=== PATIENT | female | born 1945 | race Caucasian/White ===

== ENCOUNTER 2024-05-06 14:19 | Observation (INO) | payer OTHER ==
[2024-05-06 15:04] VITALS: BMI 27.6
[2024-05-06 16:05] LABS: BASO % 0.8 % (0-2.0); HEMATOCRIT 33.5 % (32.4-45.2); HEMOGLOBIN 11.1 GM/dL (10.7-15.3); LYMPH % 14.3 % (8-40); MCH 30.6 pg (25.7-33.7); MCHC 33.1 g/dl (32.0-36.0); MEAN CELL VOLUME 92.5 fl (80-96); NEUT % 74.9 % (42.8-82.8); PLATELET COUNT 168 10^3/uL (134-434); RBC 3.62 M/mm3 (3.60-5.2); RDW 13.9 % (11.6-15.6); WHITE BLOOD COUNT 7.6 K/mm3 (4.0-10.0)
[2024-05-06 16:08] LABS: VENOUS BASE EXCESS -4.9 mmol/L (-2-2); VENOUS O2 SATURATION 65.7 % (70-80); VENOUS PCO2 39.2 mmHg (38-52); VENOUS PH 7.335 (7.310-7.410)
[2024-05-06 16:27] LABS: POTASSIUM 3.3 mmol/L (3.5-5.1)
[2024-05-06 16:29] LABS: ALBUMIN 3.3 g/dl (3.4-5.0); BLOOD UREA NITROGEN 30.6 mg/dL (7-18); CALCIUM 9.3 mg/dL (8.5-10.1)
[2024-05-06 16:33] LABS: CREATININE 1.9 mg/dL (0.55-1.3)
[2024-05-06 16:34] LABS: BILIRUBIN,TOTAL 0.8 mg/dL (0.2-1); TOT PROT 6.5 g/dl (6.4-8.2)
[2024-05-06] MEDS: LACTATED RINGERS SOLUTION 1000 ML INFUS.BAG IV ONE (16:55)
[2024-05-06] MEDS ORDERED: POTASSIUM CHLORIDE TABS 20 MEQ TABLET.ER (FP) PO ONE (16:56)
[2024-05-06] MEDS: POTASSIUM CHLORIDE TABS 20 MEQ TABLET.ER (FP) PO ONE (17:03)
[2024-05-06] MEDS: POTASSIUM CHLORIDE ORAL LIQUID 20 MEQ/15 ML PO ONE (17:05)
[2024-05-06 23:05] LABS: EPI CELLS 8 /uL (0-25.1); HYALINE CASTS 0 /uL (0-3.1); PH,URINE 6.5 (5.0-8.0); URINE APPEARANCE CLEAR; URINE BACTERIA 224 /uL (0-1359); URINE BILIRUBIN NEGATIVE (NEGATIVE); URINE COLOR YELLOW; URINE GLUCOSE (UA) NEGATIVE (NEGATIVE); URINE KETONE NEGATIVE (NEGATIVE); URINE LEUK ESTERASE 3+ (NEGATIVE); URINE NITRITE NEGATIVE (NEGATIVE); URINE PROTEIN TRACE (NEGATIVE); URINE RBC 36 /uL (0-23.9); URINE UROBILINOGEN 0.2 mg/dL (0.2-1.0); URINE WBC 153 /uL (0-25.8)
[2024-05-07 02:48] VITALS: RESP 18
[2024-05-07] MEDS: LEVOTHYROXINE NA 50 MCG TABLET (FP) PO SCH (06:06)
[2024-05-07 08:24] LABS: POTASSIUM 3.5 mmol/L (3.5-5.1)
[2024-05-07 08:38] LABS: BLOOD UREA NITROGEN 23.2 mg/dL (7-18)
[2024-05-07 08:42] LABS: CREATININE 1.3 mg/dL (0.55-1.3)
[2024-05-07 13:05] VITALS: BP 123/68; PULSE 73; TEMP 96.8
== END 2024-05-07 14:49 | disposition home or self-care (01) ==
LOC: JER 14:19 → JERBED 17:10 → J4S 23:17
PROVIDERS: ADMIT Internal Medicine; ATTEND Internal Medicine
PROC: 3E0337Z Introduction of Electrolytic and Water Balance Substance into Peripheral Vein, Percutaneous Approach (ICD-10-PCS; principal; 2024-05-06)
DX: R11.2 Nausea with vomiting, unspecified (principal); R19.7 Diarrhea, unspecified; R42 Dizziness and giddiness; E03.9 Hypothyroidism, unspecified; E78.5 Hyperlipidemia, unspecified; E87.6 Hypokalemia; I51.9 Heart disease, unspecified; K58.9 Irritable bowel syndrome, unspecified; Z96.653 Presence of artificial knee joint, bilateral; N17.9 Acute kidney failure, unspecified
CPT/HCPCS: 36415; 71045-TC-FY; 80048; 80053; 80307; 81003; 82803; 82962; 83735; 83880; 84484; 85025; 87086; 93005; 93010; 96360; 99285-25; G0378